=== PATIENT | male | born 1940 | race African-American/Black ===

== ENCOUNTER 2024-02-15 15:27 | Emergency (ER) | payer MEDICARE ==
[~2024-02-15] VITALS: Ht 175.3 cm; Wt 100.0 kg
[2024-02-15 15:31] VITALS: O2SAT 94
[2024-02-15] MEDS: SODIUM CHLORIDE 0.9% 250 ML IV ONE (16:18)
[2024-02-15 16:26] LABS: DIFFERENTIAL COMMENT 1; HEMATOCRIT. 45.8 % (42.0-52.0); HEMOGLOBIN. 15.3 g/dL (14.0-18.0); MEAN CORPUSCULAR HEMOGLOBIN 28.6 pg (28.0-32.0); MEAN CORPUSCULAR HGB CONC 33.3 g/dL (31.0-37.0); MEAN CORPUSCULAR VOLUME 85.8 fL (80.0-94.0); MEAN PLATELET VOLUME 8.8 fl (7.4-10.4); PLATELET 184 x1000/uL (130-400); RED BLOOD CELL COUNT 5.34 mill/uL (4.7-6.1); RED CELL DISTRIBUTION WIDTH 15.6 % (11.6-14.6); WHITE BLOOD COUNT 8.8 x1000/uL (4.5-11.0)
[2024-02-15 16:31] LABS: CHLORIDE 103 mEq/L (98-107); SODIUM 134 mEq/L (136-145)
[2024-02-15 16:32] LABS: CARBON DIOXIDE 25 mEq/L (21-32)
[2024-02-15 16:33] LABS: CALCIUM 8.7 mg/dL (8.7-10.4)
[2024-02-15 16:37] LABS: CREATININE 1.2 mg/dL (0.6-1.3); GLUCOSE 107 mg/dL (70-105)
[2024-02-15 16:38] LABS: TROPONIN I HIGH SENSITIVITY 13 ng/L (3.0-53); UREA NITROGEN BLOOD 11 mg/dL (9-23)
[2024-02-15 16:40] VITALS: TEMP 98
[2024-02-15] MEDS: SODIUM CHLORIDE 0.9% 1,000 ML IV ONE (16:54)
[2024-02-15 17:18] LABS: ANISOCYTOSIS 1+; PLATELET ESTIMATE NORMAL
[2024-02-15 17:20] LABS: CLARITY URINE CLEAR (CLEAR); COLOR URINE YELLOW (YELLOW); GLUCOSE URINE NEGATIVE (NEGATIVE); KETONES URINE NEGATIVE (NEGATIVE); LEUKOCYTE ESTERASE URINE NEGATIVE (NEGATIVE); NITRITE URINE NEGATIVE (NEGATIVE); OCCULT BLOOD URINE NEGATIVE (NEGATIVE); PROTEIN URINE NEGATIVE (NEGATIVE); SPECIFIC GRAVITY URINE 1.018 (1.005-1.030)
[2024-02-15 17:37] LABS: CREATINE KINASE 197 IU/L (46-171)
[2024-02-15 20:16] VITALS: BP 144/93; PULSE 105; RESP 17
== END 2024-02-15 20:45 | disposition home or self-care (01) ==
LOC: ER 15:54
DX: R53.1 Weakness (principal); I10 Essential (primary) hypertension
CPT/HCPCS: 99291; 96360; 96361; 80048; 81003; 82550; 85025; 84484; 36415; 71045; 93005; J7050; J7030